=== PATIENT | male | born 1930 | race Caucasian/White ===

== ENCOUNTER 2021-07-10 08:57 | Emergency (ER) | payer OTHER ==
[2021-07-10 10:00] LABS: Hematocrit 38.1 % (39.6-49.0); Lymphocytes % 18.3 % (15.3-44.8); MPV 8.5 fL (7.6-11.3); RBC Red Blood Cell Count 4.08 M/uL (4.33-5.43)
[2021-07-10 10:20] LABS: Albumin 3.3 g/dL (3.4-5.0); Bilirubin Total 0.7 mg/dL (0.2-1.0); Potassium 4.4 mmol/L (3.5-5.1); Protein, Total 6.9 g/dL (6.4-8.2); Troponin High Sensitivity 3.7 pg/mL (<58.9)
--- NOTE | 2021-07-10 10:58 | RAD REPORT ---
EXAM DESCRIPTION: CT - Head Brain Wo Cont - 07/10/2021 10:51 am CLINICAL HISTORY: Dizziness, non-specific Headache, drowsiness COMPARISON: No comparisons TECHNIQUE: All CT scans are performed using dose optimization technique as appropriate and may inclu de automated exposure control or mA/KV adjustment according to patient size. FINDINGS: No intracranial hemorrhage, hydrocephalus or extra-axial fluid collection.Mild generalized brain atrophy is present with mild periventricular and deep white matter chronic microvascular [place] changes.No areas of brain edema or evidence of midline shift. The paranasal sinuses and mastoids are clear. The calvarium is intact. IMPRESSION: No acute intracranial abnormality.
--- NOTE | 2021-07-10 12:41 | RAD REPORT ---
EXAM DESCRIPTION: CT - Abdomen Pelvis W Contrast - 07/10/2021 12:15 pm CLINICAL HISTORY: Abdominal pain /GI Bleed COMPARISON: none. TECHNIQUE: Computed axial tomography of the abdomen pelvis was obtained. 100 cc Isovue-300 was admin istered intravenously. Oral contrast was not requested which limits evaluation of bowel. All CT scans are performed using dose optimization technique as appropriate and may include automated exposure control or mA/KV adjustment according to patient size. FINDINGS: The liver, spleen, pancreas, and adrenals appear unremarkable. Bilateral parapelvic renal cysts. There is no evidence of diverticulitis. Moderate amount of stool within the colon A moderate left inguinal hernia contains small bowel. Small right inguinal hernia contains fat Prostate gland is moderately enlarged. IMPRESSION: Moderate left inguinal hernia containing small bowel
--- NOTE | 2021-07-10 13:32 | EDPHYS ---
Physician Documentation [facility] Name: Robert Devi Age: 89 yrs Sex: Male : 1930 Arrival Date: 07/10/2021 Time: 09:01 Bed 4 Private MD: Shahriar Bucio C ED Physician Jones Whyte HPI: 07/10 09:15 This 89 yrs old Male presents to ER via Ambulatory with complaints of Rectal Bleeding. jmm 09:15 The patient presents to the emergency department with bleeding from the rectum/anus. jmm Onset: The symptoms/episode began/occurred acutely, this morning. Modifying factors: The symptoms are alleviated by nothing, The symptoms are aggravated by bowel movement. Is an 89-year-old male with history of hypertension hypothyroidism the presents emerged Emergency Department after an episode of bright red rectal bleeding beginning earlier this morning. Patient states bleeding is currently resolved. states the patient has had intermittent episodes of dizziness/weakness. Patient was evaluated by Dr. Bucio for this last week. Patient denies chest pain or shortness of breath.. Historical: - Allergies: 09:18 No Known Allergies; jh6 - PMHx: 09:19 Hypertensive disorder; Hypothyroidism; iw - Immunization history:: Adult Immunizations up to date. - Social history:: Smoking status: Patient denies any tobacco usage or history of. ROS: 09:15 Constitutional: Negative for fever, chills, and weight loss, Cardiovascular: Negative jmm for chest pain, palpitations, and edema, Respiratory: Negative for shortness of breath, cough, wheezing, and pleuritic chest pain. 09:15 Abdomen/GI: Positive for rectal bleeding. 09:15 Neuro: Positive for dizziness, weakness. 09:15 All other systems are negative. Exam: 09:15 Constitutional: This is a well developed, well nourished patient who is awake, alert, jmm and in no acute distress. Head/Face: atraumatic. Eyes: EOMI, no conjunctival erythema appreciated ENT: Moist Mucus Membranes Neck: Trachea midline, Supple Chest/axilla: Normal chest wall appearance and motion. Cardiovascular: Regular rate and rhythm. No edema appreciated Respiratory: Normal respirations, no respiratory distress appreciated 09:15 Back: Normal ROM Skin: General appearance color normal MS/ Extremity: Moves all extremities, no obvious deformities appreciated, no edema noted to the lower extremities Neuro: Awake and alert Psych: Behavior is normal, Mood is normal, Patient is cooperative and pleasant 09:15 Abdomen/GI: Inspection: abdomen appears normal, Bowel sounds: normal, Palpation: abdomen is soft and non-tender, in all quadrants, Rectal exam: hemorrhoid(s), external, No blood or melena appreciated. Vital Signs: 09:17 BP 156 / 62; Pulse 62; Resp 16; Temp 98.2; Pulse Ox 99% on R/A; Weight 81.65 kg; Height iw 6 ft. 0 in. (182.88 cm); 10:36 BP 121 / 64; Pulse 65; Resp 16 S; Pulse Ox 99% on R/A; jd3 11:29 Pulse 63; Resp 15 S; Pulse Ox 99% ; jd3 13:30 BP 142 / 69; Pulse 55; Resp 17; Pulse Ox 98% ; Pain 0/10; jh6 09:17 Body Mass Index 24.41 (81.65 kg, 182.88 cm) iw MDM: 09:15 Patient medically screened. [facility] 13:29 Data reviewed: vital signs, nurses notes. Counseling: I had a detailed discussion with phong the patient and/or guardian regarding: the historical points, exam findings, and any diagnostic results supporting the discharge/admit diagnosis, lab results, radiology results, the need for outpatient follow up, to return to the emergency department if symptoms worsen or persist or if there are any questions or concerns that arise at home. 07/10 09:27 Order name: CBC with Diff; Complete Time: 10:16 [facility] 07/10 09:27 Order name: CMP; Complete Time: 10:25 [facility] 07/10 09:27 Order name: Lipase; Complete Time: 10:25 [facility] 07/10 09:28 Order name: Type And Screen; Complete Time: 10:55 [facility] 07/10 09:28 Order name: Troponin High Sensitivity; Complete Time: 10:25 [facility] 07/10 10:26 Order name: CT Head Brain wo Cont; Complete Time: 11:04 [facility] 07/10 09:27 Order name: IV Saline Lock; Complete Time: 09:47 [facility] 07/10 09:27 Order name: Labs collected and sent; Complete Time: 09:47 [facility] 07/10 09:28 Order name: EKG - Nurse/Tech; Complete Time: 09:47 m 07/10 11:50 Order name: Abdomen ; Complete Time: 12:42 EDMS Administered Medications: 10:36 Drug: NS 0.9% 500 ml Route: IV; Rate: bolus; Site: left antecubital; jd3 Disposition Summary: 07/10/21 13:31 Discharge Ordered Location: Home [facility] Condition: Stable [facility] Diagnosis - Rectal Bleeding [facility] Followup: [facility] - With: Shahriar Bucio MD - When: 2 - 3 days - Reason: Recheck today's complaints, Continuance of care, Re-evaluation by your physician Discharge Instructions: - Discharge Summary Sheet [facility] - Hemorrhoids [facility] Forms: - Medication Reconciliation Form [facility] - Thank You Letter [facility] - Antibiotic Education [facility] - Prescription Opioid Use [facility] Prescriptions: - Anusol-HC 25 mg Rectal Suppository - insert 1 suppository by RECTAL route every 12 hours As needed; 20 suppository; [facility] Refills: 0, Product Selection Permitted Addendum: 07/12/2021 07:27 Co-signature as Attending Physician, Jones Whyte MD I agree with the assessment and k dr plan of care. Signatures: Dispatcher [employer] EDMS Jones Whyte MD MD kdr Mickail, Joel, PA PA [facility] Aicha Vogel, Robert Peñaloza RN, RN RN jd3 Mavis Haq RN RN jh6
--- NOTE | 2021-07-10 13:32 | ER ---
Nurse's Notes [facility] Name: Robert Devi Age: 89 yrs Sex: Male : 1930 Arrival Date: 07/10/2021 Time: 09:01 Bed 4 Private MD: Shahriar Bucio C Diagnosis: Rectal Bleeding Presentation: 07/10 09:16 Chief complaint: Chief complaint: Patient states: has been constipated and was iw straining at 3 am, had some bright red blood, went back to the a couple more times and did not have blood, pt denies abd pain , states pt has been dizzy. 09:17 Coronavirus screen: At this time, the client does not indicate any symptoms associated iw with coronavirus-19. Ebola Screen: Patient negative for fever greater than or equal to 101.5 degrees Fahrenheit, and additional compatible Ebola Virus Disease symptoms Patient denies exposure to infectious person. Patient denies travel to an Ebola-affected area in the 21 days before illness onset. No symptoms or risks identified at this time. Initial Sepsis Screen: Does the patient meet any 2 criteria? No. Patient's initial sepsis screen is negative. Does the patient have a suspected source of infection? No. Patient's initial sepsis screen is negative. Risk Assessment: Do you want to hurt yourself or someone else? Patient reports no desire to harm self or others. Onset of symptoms was July 10, 2021. 09:17 Method Of Arrival: Ambulatory iw 09:17 Acuity: TIGIST 3 iw Historical: - Allergies: 09:18 No Known Allergies; jh6 - PMHx: 09:19 Hypertensive disorder; Hypothyroidism; iw - Immunization history:: Adult Immunizations up to date. - Social history:: Smoking status: Patient denies any tobacco usage or history of. Screenin:18 Abuse screen: Denies threats or abuse. Nutritional screening: No deficits noted. jh6 Tuberculosis screening: No symptoms or risk factors identified. Fall Risk None identified. Assessment: 09:17 General: Appears in no apparent distress. comfortable, Behavior is calm, cooperative. jh6 Pain: Denies pain. GI: Abdomen is non-distended, Rectal exam: pt reported constipation and bleeding after straining to have bm this am. Bowel sounds present X 4 quads. Abd is soft and non tender. 10:36 Reassessment: Patient appears in no apparent distress at this time. No changes from jd3 previously documented assessment. Patient and/or family updated on plan of care and expected duration. Pain level reassessed. Patient is alert, oriented x 3, equal unlabored respirations, skin warm/dry/pink. 11:29 Reassessment: Patient appears in no apparent distress at this time. No changes from jd3 previously documented assessment. Patient and/or family updated on plan of care and expected duration. Pain level reassessed. Patient is alert, oriented x 3, equal unlabored respirations, skin warm/dry/pink. 12:31 Reassessment: Patient appears in no apparent distress at this time. No changes from jd3 previously documented assessment. Patient and/or family updated on plan of care and expected duration. Pain level reassessed. Patient is alert, oriented x 3, equal unlabored respirations, skin warm/dry/pink. returned from CT. awaiting results. 13:50 Reassessment: No changes from previously documented assessment. Patient denies pain at [facility] this time. Patient states symptoms have improved. Pain: Denies pain. Vital Signs: 09:17 BP 156 / 62; Pulse 62; Resp 16; Temp 98.2; Pulse Ox 99% on R/A; Weight 81.65 kg; Height iw 6 ft. 0 in. (182.88 cm); 10:36 BP 121 / 64; Pulse 65; Resp 16 S; Pulse Ox 99% on R/A; jd3 11:29 Pulse 63; Resp 15 S; Pulse Ox 99% ; jd3 13:30 BP 142 / 69; Pulse 55; Resp 17; Pulse Ox 98% ; Pain 0/10; jh6 09:17 Body Mass Index 24.41 (81.65 kg, 182.88 cm) ED Course: 09:01 Patient arrived in ED. as 09:03 Shahriar Bucio MD is Private Physician. as 09:15 Himanshu Diehl PA is PHCP. jm 09:15 Jones Whyte MD is Attending Physician. jm 09:16 Robert Nicole, RN is Primary Nurse. jd3 09:18 Placed in gown. Bed in low position. Call light in reach. Side rails up X 1. Adult w/ jh6 patient. 09:19 Triage completed. iw 09:22 Robert Nicole, RN is Primary Nurse. jd3 09:27 Arm band placed on. jd3 09:47 Inserted saline lock: 20 gauge in left antecubital area, using aseptic technique. Blood jd3 collected. 10:52 CT Head Brain wo Cont In Process Unspecified. EDMS 12:17 Abdomen In Process Unspecified. EDMS 13:30 Shahriar Bucio MD is Referral Physician. [facility] 13:51 No provider procedures requiring assistance completed. jh6 13:51 IV discontinued, intact, bleeding controlled, No redness/swelling at site. Pressure jh6 dressing applied. Administered Medications: 10:36 Drug: NS 0.9% 500 ml Route: IV; Rate: bolus; Site: left antecubital; jd3 Outcome: 13:31 Discharge ordered by MD. [facility] 13:51 Discharged to home ambulatory. jh6 13:51 Condition: good 13:51 Discharge instructions given to patient, Instructed on discharge instructions, follow up and referral plans. Demonstrated understanding of instructions, follow-up care, medications, Prescriptions given X 1. 13:51 Patient left the ED. [facility] Signatures: Dispatcher [employer] EDMS Himanshu Diehl PA PA jmm Martinez, Amelia as Williams, Irene, RN RN Robert Nicole, NAYLA RN Mavis Acevedo RN RN 6 Corrections: (The following items were deleted from the chart) 09:19 09:16 Chief complaint: [facility]
[2021-07-10 13:57] VITALS: TEMP 98.2
[2021-07-10 14:01] VITALS: BP 142/69; O2SAT 98
== END 2021-07-10 13:51 | disposition home or self-care (01) ==
LOC: ER 08:57
DX: K62.5 Hemorrhage of anus and rectum (principal); R53.1 Weakness; I10 Essential (primary) hypertension; E03.9 Hypothyroidism, unspecified
CPT/HCPCS: 93005; 85025; 36415; 86900; 86850; 86901; 84484; 83690; 80053; 70450; 74177; 99284; Q9967